=== PATIENT | female | born 1970 | race Caucasian/White ===

== ENCOUNTER 2018-12-06 10:22 | Emergency (ER) | payer OTHER ==
[~2018-12-06] VITALS: Ht 167.6 cm; Wt 79.4 kg
[2018-12-06] MEDS ORDERED: LISINOPRIL20 MG PO (10:58)
--- OUTSIDE RECORDS SUMMARY | 2018-12-06 12:12 | XMS ---
PreManage Notification: FRANTZ TAN Security Internal Communications Intern Events No recent Security Events currently on file CRITERIA MET - [facility] 2 Visits in 30 Days CARE PROVIDERS [place] Primary [facility] PHONE: Unknown GARDENIA GILES Primary Care [facility] PHONE: Unknown Faisal has no Care Guidelines for this patient. Fadumo VISIT COUNT (12 MO.) [address] [place] [address] TOTAL 4 NOTE: Visits indicate total known visits. ED/UCC VISIT TRACKING (12 MO.) 12/06/2018 10:23 [facility] [place] TYPE: Emergency COMPLAINT: - RASH [facility]19[facility]2018 21[facility] DIAGNOSES: - Rash itchy - Secondary hypertension, unspecified - Dermatitis, unspecified 04/26/2018 08:48 [facility] [place] TYPE: Emergency COMPLAINT: - FALL DIAGNOSES: - Hypotension due to drugs - Essential (primary) hypertension - Dehydration - Syncope and collapse - Personal history of nicotine dependence 04/16/2018 09:58 [facility] [place] TYPE: Emergency COMPLAINT: - SEIZURE DIAGNOSES: - Unspecified convulsions - Personal history of nicotine dependence - Essential (primary) hypertension INPATIENT VISIT TRACKING (12 MO.) No inpatient visits to display in this time frame [email or web address]
== END 2018-12-06 12:25 | disposition home or self-care (01) ==
LOC: ED 10:22
DX: R21 Rash and other nonspecific skin eruption (principal)

== ENCOUNTER 2021-05-04 05:35 | Day surgery (SDC) | payer OTHER ==
[~2021-05-04] VITALS: Ht 167.6 cm; Wt 116.1 kg
[~2021-05-04 05:35] MED LIST: LISINOPRIL20 MG PO
--- NOTE | 2021-05-04 06:04 | NUR ---
[facility] RAPID COVID TEST DONE PER ORDER. COVID TEST WAS COLLECTED FROM BOTH NARES W/O ISSUE. PT TOLERATED WELL.
[2021-05-04] MEDS ORDERED: HYDROCHLOROTH12.5 M1 PO (06:15)
[2021-05-04] MEDS ORDERED: LEVOTHYROXINE25 MC1 PO (06:15)
[2021-05-04] MEDS ORDERED: GABAPENTIN600 MG PO (06:19)
[2021-05-04] MEDS ORDERED: EFFEXOR XR75 MG PO (06:19)
[2021-05-04] MEDS ORDERED: BUSPIRONE HCL10 MG PO (06:20)
--- NOTE | 2021-05-04 06:29 | NUR ---
C/O OF BACK PAIN AT 10/10 SMILING AND LAUGHING
--- NOTE | 2021-05-04 07:53 | NUR ---
05/04/21 Leda6 Ofelia Gandara 1563-PATIENT ARRIVED TO PACU ON 2L NC. 96% PATIENT AWAKE VERY DROWSY DENIES PAIN OR NAUSEA. PATIENT FALLS ASLEEP AND APNEA. PATIENT AROUSES TO VERBAL STIMULI AND ENCOURAGED TO TAKE DEEP BREATHES. WILL SEND SLEEP APNEA INFO HOME WITH PATIENT AND TO PCP.
--- NOTE | 2021-05-04 08:48 | OR ---
[facility] [address] [place], [place] [address] Signed DATE OF OPERATION: 05/04/2021 SURGEON: Marley Irvin MD PREOPERATIVE DIAGNOSIS: Unspecified mass/thickened duodenum on CT scan. POSTOPERATIVE DIAGNOSIS: Moderate gastroduodenitis with edema of the distal antrum. PROCEDURE: EGD with CLOtest and biopsy of the pyloric bulb, antrum and GE junction. ESTIMATED BLOOD LOSS: None. INDICATIONS: Mary Alice is a 50-year-old female, asked to see me for upper endoscopy. Her liver function test had been off and an ultrasound showed lesions in the liver. The CT scan confirmed hemangiomas. 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 She has headed to see her urologist tomorrow. There was concern that there could be a tumor in the 1st or 2nd portion of the duodenum versus thickening due to peristalsis. Consequently, she had been asked to see me for upper endoscopy. I met with Mary Alice in the office and I gave her a pamphlet on upper endoscopy. She understands the nature of that test. There is risk including, but not limited to gas bloating, crampy abdominal pain, bleeding, perforation requiring surgery, and missed diagnosis. We also discussed the need for IV conscious sedation. She had expressed understanding and wished to proceed. DESCRIPTION OF PROCEDURE: Mary Alice was taken into our endoscopy suite and placed in the supine semi-recumbent position. The posterior oropharynx was anesthetized with lidocaine spray. A bite block was utilized for the case. She was given 5 mg of Versed and 100 mcg of fentanyl to cover the case. The adult gastroscope was introduced and advanced under direct visualization the camera. We could see immediately she had some edema around arytenoids and upper airway. The scope passed readily down the esophagus and into the stomach. We could see that the distal half of the stomach was edematous and erythematous. It took just a minute to get the gastroscope through the opening of the antrum and into the pyloric bulb and out into the duodenum. The 2nd and 3rd portions of the duodenum were unremarkable. The pyloric bulb showed some and some mild edema. We consequently took a biopsy out of the pyloric bulb. The antrum showed quite a bit of Electronically Signed By: MARLEY IRVIN MD 05/04/21 0848 PATIENT NAME: MARY ALICE TAN OPERATIVE REPORT DATE OF : 70 REPORT #: [id number] PHYSICIAN: MARLEY IRVIN MD PCP: BERNA ESQUIVEL MD REPORT IS CONFIDENTIAL AND NOT TO BE RELEASED WITHOUT AUTHORIZATION [facility] [address] [place], [place] [address] Signed edema around the opening in the distal portion of the antrum. She also has some punctate areas of hemorrhagic gastritis. That portion is mild. We took biopsies of the antrum for CLOtest as well as pathologic review. Upon retroflexion of scope, the proximal half of the stomach is a bit better. I could not directly appreciate a hiatal hernia. However, upon withdrawal of the scope, we can see that she does have some irritation around the Z-line. No Hernández's mucosa. No gastric or esophageal varices. We took a biopsy along the Z-line for pathologic review. The distal middle and upper esophagus were unremarkable. After this, the gas was suctioned out and the gastroscope removed. Mary Alice tolerated the procedure quite well. RECOMMENDATIONS: Mary Alice will be written for omeprazole 20 mg one tablet p.o. daily for 30 days with one refill. She will follow up in my office in 7 to 14 days. Marley Irvin MD [facility] /[id number] cc: MD Marley Nina MD Patrick W Gavin Copies: MARLEY IRVIN MD, Patrick W ~ Electronically Signed By: MARLEY IRVIN MD 05/04/21 0848 PATIENT NAME: MARY ALICE TAN OPERATIVE REPORT DATE OF : 70 REPORT #: [id number] PHYSICIAN: MARLEY IRVIN MD PCP: BERNA ESQUIVEL MD REPORT IS CONFIDENTIAL AND NOT TO BE RELEASED WITHOUT AUTHORIZATION
--- NOTE | 2021-05-04 13:39 | NUR ---
PT ALERT, ORIENTED AND SUPPORTED BY HER SISTER MORGAN. PT VERY ANXIOUS, HAS HAD EGD BEFORE. THIS TIME SHE EXPECTS TO GET BAD NEWS. WORKED TO DEBRIEF AND GIVE ENCOURAGEMENT AND COMFORT. MORGAN WILL REMAIN, PT REQUESTED PRAYER. CONNECTED IN HALLWAY WITH MORGAN AND THEIR MOTHER. BOTH VERY ANXIOUS AND REQUESTED INFO AND WANTED TO GO TO PACU TO SEE PT. INFORMED THEM THAT WAS NOT POSSIBLLE BUT DID GET MOST RECENT INFO ON HOW PT WAS DOING. THEY THANKED ME. WILL FOLLOW
--- NOTE | 2021-05-04 18:33 | EKG ---
[facility] [address] [facility] [place], [place] [address] Signed Normal sinus rhythm Low voltage QRS Septal infarct , age undetermined Abnormal ECG No previous ECGs available Confirmed by IRIS PACK MD ([id number]) on 05/04/2021 6:33:20 PM Electronically Signed By: IRIS PACK MD 05/04/211832 PATIENT NAME: FRANTZ TAN Electrocardiogram DATE OF : 70 PHYSICIAN: IRIS PACK MD REPORT #: [id number] REPORT IS CONFIDENTIAL AND NOT TO BE RELEASED WITHOUT AUTHORIZATION
--- NOTE | 2021-05-08 21:35 | PATH ---
[facility] [address] [facility] [place] [address] Signed SPECIMEN(S): A DUODENAL BULB SPECIMEN(S): B ANTRUM/PYLORUS SPECIMEN(S): C GE JUNCTION SPECIMEN SOURCE: A. DUODENAL BULB B. ANTRUM/PYLORUS C. GE JUNCTION CLINICAL HISTORY: EGD with biopsy. Thickened duodenum. Postop: Gastroduodenitis. MICROSCOPIC DESCRIPTION: Histologic sections of all submitted blocks are examined by light microscopy. These findings, together with the gross examination, support the pathologic diagnosis. FINAL PATHOLOGIC DIAGNOSIS: A. Duodenal bulb, biopsy: - Peptic duodenitis. - Negative for dysplasia or malignancy. B. Stomach, antrum/pylorus, biopsy: - Antral mucosa with mild chronic, inactive gastritis. - Negative for Helicobacter organisms on HE stain. - Negative for dysplasia or malignancy. C. Gastroesophageal junction, biopsy: - Severe reflux esophagitis with mucosal erosion. - Negative for intestinal metaplasia, dysplasia or malignancy. - See comment. COMMENT: Regarding specimen C: PAS/D (with appropriately staining controls) is negative for fungal organisms. NAL:cml:C2NR GROSS DESCRIPTION: Three specimens are received in three containers, labeled "AP." A. The specimen, labeled "AP, duodenal bulb biopsy," is received in formalin and consists of one nguyễn soft tissue fragment that measures 0.2 cm in greatest dimension. The specimen is entirely submitted in cassette (A1). B. The specimen, labeled "AP, antrum biopsy," is received in formalin and PATIENT NAME: MARY ALICE TAN PATHOLOGY DATE OF : 70 REPORT #: [id number] PHYSICIAN: MARILIA PAULA PCP: BERNA ESQUIVEL MD REPORT IS CONFIDENTIAL AND NOT TO BE RELEASED WITHOUT AUTHORIZATION [facility] [address] [place] [id number] Signed consists of one nguyễn soft tissue fragment that measures 0.2 cm in greatest dimension. The specimen is entirely submitted in cassette (B1). C. The specimen, labeled "AP, GE junction biopsy," is received in formalin and consists of one nguyễn soft tissue fragment that measures 0.2 cm in greatest dimension. The specimen is entirely submitted in cassette (C1). JS (under the direct supervision of a pathologist) The Gross Description was prepared using a voice recognition system. The report was reviewed for accuracy; however, sound-alike word errors, addition and/or deletions may occur. If there is any question about this report, please contact Client Services. PERFORMING LABORATORY: The technical component was performed by [facility], [address] [place] [id number] (Battery Parts Assembler: Mary Alice Crane MD; CLIA# [id number]). [facility], [address] [address] (CLIA# [id number]). Diagnostician: Dee Jones MD Pathologist Electronically Signed 05/08/2021 Copies: ~ PATIENT NAME: MARY ALICE TAN PATHOLOGY DATE OF : 70 REPORT #: [id number] PHYSICIAN: MARILIA PAULA PCP: BERNA ESQUIVEL MD REPORT IS CONFIDENTIAL AND NOT TO BE RELEASED WITHOUT AUTHORIZATION
== END 2021-05-04 13:25 | disposition home or self-care (01) ==
LOC: DS 05:35 → OPS 05:35 → DS 06:45 → OPS 13:25 → DS 05-25 09:45
PROVIDERS: ATTEND Colon & Rectal Surgery
PROC: 0DB78ZX Excision of Stomach, Pylorus, Via Natural or Artificial Opening Endoscopic, Diagnostic (ICD-10-PCS; 2021-05-04)
PROC: 0DB48ZX Excision of Esophagogastric Junction, Via Natural or Artificial Opening Endoscopic, Diagnostic (ICD-10-PCS; principal; 2021-05-04 06:45)
DX: K29.91 Gastroduodenitis, unspecified, with bleeding (principal); K21.00 Gastro-esophageal reflux disease with esophagitis, without bleeding; I10 Essential (primary) hypertension; E66.01 Morbid (severe) obesity due to excess calories; E03.9 Hypothyroidism, unspecified; Z87.891 Personal history of nicotine dependence; Z20.822 Contact with and (suspected) exposure to COVID-19; Z68.41 Body mass index [BMI] 40.0-44.9, adult; Z87.440 Personal history of urinary (tract) infections
CPT/HCPCS: 71045; 80048; 84484; 84703; 85025; 88305; 88312; 93005; 93010; C9113; C9803; G0500; J2250; J3010; J7121; U0003

== ENCOUNTER 2022-08-01 13:37 | Emergency (ER) | payer OTHER ==
[~2022-08-01] VITALS: Ht 167.6 cm; Wt 118.4 kg
[~2022-08-01 13:37] MED LIST changes: +BUSPIRONE HCL10 MG PO; +EFFEXOR XR75 MG PO; +GABAPENTIN600 MG PO; +HYDROCHLOROTH12.5 M1 PO; +LEVOTHYROXINE25 MC1 PO
--- OUTSIDE RECORDS SUMMARY | 2022-08-01 13:40 | XMS ---
PreManage Notification: FRANTZ TAN Security Assistant Counsel Events No recent Security Events currently on file CRITERIA MET - Group Notification CARE PROVIDERS There are no care providers on record at this time. Faisal has no Care Guidelines for this patient. Fadumo VISIT COUNT (12 MO.) 1 [facility] Doyle TOTAL 1 NOTE: Visits indicate total known visits. ED/C VISIT TRACKING (12 MO.) 08/01/2022 13:39 [facility] [place] TYPE: Emergency COMPLAINT: - BLOOD IN URINE, SKIN RASH INPATIENT VISIT TRACKING (12 MO.) 08/21/2021 05:[address] [facility] Cristina BAEZA TYPE: Internal Medicine DIAGNOSES: - Other specified disorders of kidney and ureter [email or web address]
[2022-08-01] MEDS ORDERED: DICLOFENAC SODI75 MG PO (13:57)
[2022-08-01] MEDS ORDERED: BETAMETHASONE V15 GM TOP (13:57)
[2022-08-01] MEDS ORDERED: OMEPRAZOLE20 MG PO (13:57)
== END 2022-08-01 18:40 | disposition home or self-care (01) ==
LOC: ED 13:37
DX: M25.50 Pain in unspecified joint (principal); N17.9 Acute kidney failure, unspecified; I10 Essential (primary) hypertension; Z20.822 Contact with and (suspected) exposure to COVID-19; Z87.891 Personal history of nicotine dependence; Z79.899 Other long term (current) drug therapy
CPT/HCPCS: 36415; 76770; 80053; 81001; 82553; 83010; 83605; 83721; 85025; 85060; 85384; 85610; 86141; 87088; 87491; 99284-25; U0003